=== PATIENT | male | born 1985 | race Caucasian/White ===

== ENCOUNTER 2016-07-23 14:30 | Emergency (ER) | payer BC ==
[~2016-07-23] VITALS: Ht 177.8 cm; Wt 74.8 kg
[2016-07-23 14:36] VITALS: BP 154/91
== END 2016-07-23 15:08 | disposition left against medical advice (07) ==
LOC: ER 14:34
DX: S31.21XA Laceration without foreign body of penis, initial encounter (principal); X58.XXXA Exposure to other specified factors, initial encounter; Y93.89 Activity, other specified; Y92.89 Other specified places as the place of occurrence of the external cause; Y99.9 Unspecified external cause status
CPT/HCPCS: 99283; A4606; Z7610